=== PATIENT | female | born 1985 | race Caucasian/White ===

== ENCOUNTER → 2021-02-06 | Day surgery (SDC) | payer OTHER ==
[~2021-02-06] VITALS: Ht 170.2 cm; Wt 93.0 kg
[~2021-02-06] MED LIST: ACETAMINOPHEN500 M1 PO; DAILY VALUE1 EACH PO; KEPPRA250 MG PO; NORCO 5-325 TA1 EACH PO; ONDANSETRON ODT8 MG PO; TOPAMAX100 MG PO
[2021-02-06 09:36] LABS: HCG (URINE) SCREEN NEGATIVE (NEGATIVE)
[2021-02-06 10:02] LABS: HCT 40.8 % (37.0-47.0); HGB 13.7 g/dl (12.5-16.0); MCH 32.9 pg (25.0-31.0); MCHC 33.6 g/dL (32.0-36.0); MCV 97.8 fL (78.0-100.0); MPV 11.9 fL (6.0-9.5); RBC 4.17 M/uL (4.20-5.40)
[2021-02-06 10:32] LABS: ALBUMIN 3.9 g/dL (3.4-5.0); BILIRUBIN - TOTAL 0.6 mg/dL (0.2-1.0); BUN/CREAT RATIO (CALC) 21.9 RATIO; CREATININE 0.73 mg/dL (0.51-0.95); GLOBULIN (CALCULATION) 3.6 g/dL; POTASSIUM 4.1 mmol/L (3.5-5.1); TOTAL PROTEIN 7.5 g/dL (6.4-8.2)
== END | disposition home or self-care (01) ==
LOC: FAS 09:17
PROVIDERS: Surgery
DX: K80.10 Calculus of gallbladder with chronic cholecystitis without obstruction (principal); K82.1 Hydrops of gallbladder; K66.0 Peritoneal adhesions (postprocedural) (postinfection); G40.909 Epilepsy, unspecified, not intractable, without status epilepticus; Z87.891 Personal history of nicotine dependence; Z79.899 Other long term (current) drug therapy; Z88.1 Allergy status to other antibiotic agents; Z88.2 Allergy status to sulfonamides; Z88.8 Allergy status to other drugs, medicaments and biological substances
CPT/HCPCS: 36415; 74300; 80053; 84703; C1758; J1170; J2250; J2405; J2704; J2710; J3010; J7120; Q9967